=== PATIENT | male | born 1950 | race Caucasian/White ===

== ENCOUNTER 2023-05-03 15:50 | Emergency (ER) | payer MEDICARE, SELFPAY ==
[2023-05-03] VITALS (45 sets, daily range): BP systolic 140–187; BP diastolic 76–105; PULSE 66–92; RESP 14–28; TEMP 36.4; O2SAT 94–99; BMI 21.5
--- NOTE | 2023-05-03 16:29 | ED_ITS ---
HPI - Extremity Injury (Lower) General Chief Complaint: Extremity Injury, Lower Stated Complaint: Numbness Left Leg Time Seen by Provider: 05/03/23 16:09 Source: patient Mode of arrival: Wheelchair Limitations: no limitations History of Present Illness HPI Narrative: The patient have history of hypertension hyperlipidemia and stent placement in his carotid according to the, history he provided, the patient with his bicycle outside for 2 miles after which he went home with no problem when he got home he did ascend the stairs after which he started having swelling and also then felt his left leg is full and gave up on him, he had then has been complaining of left leg pain mostly at the proximal leg going down his distal. And he feels his left leg heavy The patient also had a incontinence of stool that happened upon arrival and that was an abnormal thing to happen to him He denies any abdominal pain any nausea or vomiting any fall or trauma he also denies any symptoms prior to this incident or any symptoms similar to this incident Related Data Home Medications Medication Instructions Recorded Confirmed amlodipine 2.5 mg tablet 2.5 mg PO DAILY 05/03/23 05/03/23 lisinopril 20 2 tab PO DAILY 05/03/23 05/03/23 mg-hydrochlorothiazide 12.5 mg tablet rosuvastatin 40 mg tablet 40 mg PO DAILY 05/03/23 05/03/23 Allergies Allergy/AdvReac Type Severity Reaction Status Date / Time No Known Drug Allergies Allergy Verified 05/03/23 16:09 Review of Systems ROS Status of ROS 10 or more systems reviewed and unremark able except as noted in history and below [facility] Social History Smoking status: Heavy tobacco smoker Exam Narrative Exam Narrative: Nurses notes and vital signs reviewed and patient is not hypoxic. General: Well-appearing and in no apparent distress. Skin: Warm, dry, no pallor noted. No rash. Head: Normocephalic, atraumatic. Neck: Supple, non-tender. Eye: Pupils are equal, round and EOMI. No scleral icterus. Ears, Nose, Mouth, and Throat: TM are clear, no nasal mucosal hypertrophy. Oral mucosa is moist, no posterior oropharynx erythema, uvula is mid-line Cardiovascular: Regular Rate and Rhythm without murmur, gallop or rub. Respiratory: No accessory muscle use or respiratory distress. Lungs are clear to auscultation, no wheezing, rales or rhonchi Chest Wall: no tenderness Back: No midline thoracic or lumbar vertebral tenderness. No CVA tenderness Musculoskeletal: It was obvious that the patient left foot is pale and cold compared to the right foot it was also noted that the patient have dopplerable dorsalis pedis on the right side but on the left side he had no pulse I also was not able to obtain an ultrasound pulsation of the femoral and the left side as it can be visualized but it not pulsating and there was a weak pulsation on the right side GI: Abdomen is soft, non-distended. Normal bowel sounds. No masses appreciated. No tenderness to palpation. No rebound, guarding, or rigidity noted. Neurological: A&O x4. No cranial nerve dysfunction observed. No truncal ataxia. Moves all extremities. Sensation intact. Psychiatric: Cooperative and interactive. Normal mood and affect. Constitutional Vital Signs, click to edit/add: Last Vital Signs Temp 97.5 F L 05/03/23 16:04 Pulse 92 H 05/03/23 16:04 Resp 20 05/03/23 16:04 BP 146/105 H 05/03/23 16:04 Pulse Ox 99 05/03/23 16:04 O2 Del Method Room Air 05/03/23 16:04 Course Vital Signs Vital signs: Vital Signs Temperature 97.5 F L 05/03/23 16:04 Pulse Rate 92 H 05/03/23 16:04 Respiratory Rate 20 05/03/23 16:04 Blood Pressure 146/105 H 05/03/23 16:04 Pulse Oximetry 99 05/03/23 16:04 Oxygen Delivery Method Room Air 05/03/23 16:04 Temperature 97.5 F L 05/03/23 16:04 Pulse Rate 92 H 05/03/23 16:04 Respiratory Rate 20 05/03/23 16:04 Blood Pressure 146/105 H 05/03/23 16:04 Pulse Oximetry 99 05/03/23 16:04 Oxygen Delivery Method Room Air 05/03/23 16:04 MDM - Extremity Injury (Lower) MDM Narrative Medical decision making narrative: The patient EKG upon presentation showing sinus rhythm with a heart rate of 75 It was concerning the fact that the patient left leg is pale with no pulse can be detected or deplorable The patient also the femoral with ultrasound use with not able to detect any pulsation in the femoral although I can obviously see it pulsating on the right side although weak The patient have a incontinence of stool that was well formed stool which is a new incident Right now the patient CBC shows leukocytosis lactic acid is elevated around 4 which ischemic incident is suspected pt was started on heparin with obvious decreased blood supply to the left leg No weakness detected but the patient still feeling his left heavy which is mostly secondary to his acute ischemic changes started on low dose heparin awaiting cta result The patient care transferred to Dr Salas Discharge Plan Discharge Patient Disposition: Still a Patient
--- NOTE | 2023-05-03 16:30 | ECG_ITS ---
[facility] Test Date: 2023-05-03 Pat Name: EDMUNDO WALKER Department: Room: - Gender: Male Clinical Data Programmer: : [id number] Requested By: [id number] Order Number: [id number] Reading MD: ANDRIA WATERMAN Measurements Intervals [place] Rate: 75 P: 68 WA: 212 QRS: -3 QRSD: 82 T: 64 QT: 394 QTc: 422 Interpretive Statements 1100 Sinus rhythm 2231 First degree AV block 9150 abnormal ECG No previous ECG available for comparison Electronically Signed On 05-04-2023 7:16:07 EST by ANDRIA WATERMAN
[2023-05-03 16:49] LABS: Basophils Percent Auto 0.2 % (0.2-2.0); Eosinophils Absolute Auto 0.3 10^3/uL (0.0-0.7); Eosinophils Percent Auto 1.5 % (0.9-7.0); Hematocrit 40.9 % (42.0-54.0); Hemoglobin 13.4 g/dL (14.0-18.0); Immature Granulocytes Abs Auto 0.15 10^3/uL (0.00-0.03); Immature Granulocytes Pct Auto 0.9 % (0.0-0.5); Lymphocytes Absolute Auto 1.4 10^3/uL (1.2-3.8); Lymphocytes Percent Auto 8.3 % (20.5-60.0); Mean Corpuscular HGB Conc 32.8 g/dL (29.9-35.2); Mean Corpuscular Hemoglobin 28.9 pg (25.9-34.0); Mean Corpuscular Volume 88.1 fL (80.0-94.0); Mean Platelet Volume 9.7 fL (9.5-13.5); Monocytes Absolute Auto 0.5 10^3/uL (0.3-0.8); Neutrophils Absolute Auto 14.4 10^3/uL (1.4-6.5); Neutrophils Percent Auto 86.1 % (43.0-75.0); Platelet Count 179 10^3/uL (150-450); Red Blood Count 4.64 10^6/uL (4.70-6.10); Red Cell Distribution Width 12.7 % (11.0-15.0); White Blood Count 16.7 10^3/uL (4.0-11.0)
[2023-05-03 17:06] LABS: Alanine Aminotransferase 28 U/L (16-63); Albumin Globulin Ratio 0.9; Albumin Level 3.8 g/dL (3.4-5.0); Alkaline Phosphatase 97 U/L (46-116); Anion Gap 13.9; Aspartate Amino Transferase 20 U/L (15-37); BUN Creatinine Ratio 8.2; Bilirubin Total 0.7 mg/dL (0.2-1.0); Calcium 9.3 mg/dL (8.5-10.1); Carbon Dioxide 28.2 mmol/L (21.0-32.0); Chloride 97 mmol/L (98-107); Estimated GFR (African America 48 (>=60); Estimated GFR (Non-African Ame 40 (>=60); Glucose 132 mg/dL (74-106); Potassium 4.1 mmol/L (3.5-5.1); Sodium 135 mmol/L (136-145); Total Protein 7.8 g/dL (6.4-8.2)
[2023-05-03 17:08] LABS: Troponin I High Sensitivity 11.9 pg/mL (4.0-76.1)
[2023-05-03 17:12] LABS: Lactate/Lactic Acid 4.2 mmol/L (0.4-2.0)
[2023-05-03 17:13] LABS: INR 0.96; Partial Thromboplastin Time 25.5 sec (22.3-36.2); Prothrombin Time 10.2 sec (9.0-11.6)
--- NOTE | 2023-05-03 17:35 | CT_ITS ---
[address] [address] Patient Name: EDMUNDO WALKER MRN: [id number] date: 1950 Sex: M Assigned Patient Location: ER Current Patient Location: Accession/Order Number: [id number] Exam Date: 05/03/2023 17:22 Report Date: 05/03/2023 20:11 At the request of: MATTHEW MENDOZA Procedure: CT angio abd aorta runoff EXAMINATION: CT angio abd aorta runoff HISTORY: iliac occlusion ? COMPARISON: No relevant comparison available. TECHNIQUE: CT angiographic images of the abdomen, pelvis, and lower extremities were obtained after the administration of intravenous contrast material. Multi-planar reformatted images and maximum intensity projections were obtained. Dose reduction techniques were achieved by using automated exposure control and/or adjustment of mA and/or kV according to patient size and/or use of iterative reconstruction technique. FINDINGS: AORTA: Diffuse atherosclerotic calcification of the abdominal aorta with no significant stenosis or occlusion. Mild stenosis of the origin of the celiac artery. The superior mesenteric and inferior mesenteric arteries are patent. There is prominent calcification of the origin of the right renal artery with probable mild stenosis. There is a left renal artery stent which appears occluded. ILIAC: There is an occluded left common iliac artery stent in the common iliac artery. There is a stent in the left external iliac artery which appears patent with reconstitution from collateral flow likely via the internal iliac artery. There is diffuse calcification in the iliac arteries. There is mild stenosis in the bilateral internal iliac arteries. There is a left internal iliac aneurysm on image 99 series 4 measuring 10 mm. There is a patent stent within the right external iliac artery. RIGHT LEG: There is diffuse calcification in the right common femoral artery with mild stenosis. There is severe stenosis of the proximal right superficial femoral artery with occlusion proximally. There is distal reconstitution. The profunda femoral artery is patent. The right popliteal artery is patent with mild stenosis. The tibioperoneal trunk appears patent. There appears to be single vessel runoff via the peroneal artery with occlusion of the anterior tibial and posterior tibial arteries. 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 There is moderate, approximately 60% stenosis of left common femoral artery distal to the stent and proximal to this aneurysm. There is occlusion of the left superficial femoral artery and popliteal artery with partial reconstitution of the distal popliteal artery from collateral flow. The popliteal artery is small in caliber. There is single vessel runoff via the peroneal artery with occlusion of the anterior tibial and posterior tibial arteries. LUNG BASES: No visible pulmonary or pleural disease. LIVER: Normal. GALLBLADDER/BILIARY SYSTEM: Normal. SPLEEN: Normal. PANCREAS: Moderate fatty replacement. ADRENALS: Normal. KIDNEYS: Normal right kidney. Severe atrophy of the left kidney with decreased enhancement consistent with the above-mentioned occluded stent in the left renal artery. RETROPERITONEUM: Normal with no adenopathy. BOWEL/MESENTERY: Unremarkable. URINARY BLADDER: No visible focal wall thickening, lesion, or calculus. REPRODUCTIVE SYSTEM: Borderline enlarged prostate gland measuring 4.8 x 3.3 cm. ABDOMINAL WALL: Moderate fat-containing supraumbilical ventral hernia. BONES: There are mild to moderate multilevel degenerative changes of the spine. There is a mild compression fracture at L1 which is age indeterminate but favored to be subacute to chronic in nature. Of note, there is transitional anatomy at the lumbosacral junction and the last well-formed disc space is considered to be L5-S1 for the purposes of this report with a hypoplastic disc space at S1-S2. CT/CT angio abd aorta runoff IMPRESSION: 1. Occluded stent in left common iliac artery with reconstitution of the left external iliac artery from collateral blood flow. 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 There is single vessel runoff to the left calf with a patent peroneal artery but occlusion of the anterior and posterior tibial arteries. 2. Occlusion of the right superficial femoral artery with distal reconstitution of the right superficial femoral and popliteal arteries. There is single vessel runoff to the right leg via the peroneal artery with occlusion of the anterior tibial and posterior tibial arteries. 3. 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 4. Occluded left renal artery stent with associated severe left renal atrophy and decreased enhancement from chronic ischemia. 5. Age-indeterminate but likely subacute to chronic compression fracture at L1. 6. Fat-containing ventral hernia, fatty replacement of the pancreas, and borderline enlarged prostate gland. Electronically authenticated by: VIRIDIANA ROTH Date: 05/03/2023 20:11
[2023-05-03] MEDS: 0.9 % SODIUM CHLORIDE 1,000 ML 1000 ML IV (17:43)
--- NOTE | 2023-05-03 18:26 | PC.NURSE ---
Pt arrives with complaints that his left leg felt like it had swelled up and decreased sensation/ strength. Pts left foot is pale and cool. Myselfand Dr Steiner unable to locate a pedal pulse with the doppler . Dr Steiner also used the ultrasound but was not able to see blood flow in artery.
[2023-05-03] MEDS: HEPARIN SODIUM (PORCINE) 5,000 UNIT/ML VIAL 2700 UNIT IV (19:16)
[2023-05-03] MEDS: HEPARIN SODIUM,PORCINE/D5W 25,000 UNIT/500 ML IV.SOLN 16.765 UNIT IV (19:17)
[2023-05-03 20:10] LABS: Lactate/Lactic Acid 1.5 mmol/L (0.4-2.0)
== END 2023-05-03 22:35 | disposition short-term general hospital (02) ==
PROVIDERS: Emergency Medicine; Emergency Provider Emergency Medicine; PCP Internal Medicine
DX: I77.1 Stricture of artery (principal); I73.9 Peripheral vascular disease, unspecified; R15.9 Full incontinence of feces; M79.89 Other specified soft tissue disorders; I10 Essential (primary) hypertension; F17.210 Nicotine dependence, cigarettes, uncomplicated; Z79.899 Other long term (current) drug therapy
CPT/HCPCS: 36415; 75635; 80053; 83605; 84484; 85025; 85610; 85730; 93005; 96374; 99285; Q9966

== ENCOUNTER 2024-09-05 18:51 | Emergency (ER) | payer MEDICARE, SELFPAY ==
[2024-09-05 19:05] VITALS: BP 171/87; PULSE 83; TEMP 36.6; O2SAT 99; BMI 24.4
--- NOTE | 2024-09-05 19:16 | ED.EXTPRO1 ---
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 He states he fell yesterday in his home, he denies head injury or loss of consciousness. He has pain to the femur and knee, no medications taken prior to arrival. He is on aspirin and Plavix. He is due to follow-up with vascular surgery at [facility] in the next several weeks to have his carotid arteries evaluated for possible stenting. He has noted on arrival for the bilateral lower extremities to be cool to the touch and pale. Related Data Home Medications ?Medication ?Instructions ?Recorded ?Confirmed aspirin 81 mg capsule 81 mg PO DAILY 05/03/23 09/05/24 lisinopril 20 2 tab PO DAILY 05/03/23 09/05/24 mg-hydrochlorothiazide 12.5 mg tablet mecobalamin (vitamin B12) 500 mcg 500 mcg PO QDAY 05/03/23 09/05/24 chewable tablet rosuvastatin 40 mg tablet 40 mg PO DAILY 05/03/23 09/05/24 clopidogrel 75 mg tablet mg 09/05/24 ergocalciferol (vitamin D2) 1,250 09/05/24 mcg (50,000 unit) capsule metoprolol succinate 25 mg mg PO 09/05/24 tablet,extended release 24 hr Allergies Allergy/AdvReac Type Severity Reaction Status Date / Time No Known Drug Allergies Allergy Verified 09/05/24 19:05 Review of Systems ROS Constitutional Denies: fever or chills Ears, nose, mouth, and throat Denies: throat pain or nasal congestion Cardiovascular Denies: chest pain Respiratory Denies: shortness of breath or cough Gastrointestinal Denies: nausea or vomiting Musculoskeletal Reports: extremity pain; Denies: back pain, neck pain or extremity swelling Integumentary/Breast Denies: rash Neurological Denies: numbness in extremities or weakness in extremities Hematologic/Lymphatic Reports: easy bruising and easy bleeding PFSH PFSH Social History Smoking status: Heavy tobacco smoker Little interest or pleasure in doing things: not at all Feeling down, depressed, or hopeless: not at all Exam Narrative Exam Narrative: Gen.: Awake, alert, in no distress Head: Normocephalic, atraumatic ENT: Moist mucous membranes Respiratory: No respiratory distress, lungs clear bilaterally Cardio: Regular rate and rhythm Gastrointestinal: Abdomen is soft, nondistended and nontender to palpation Extremities: No bony tenderness of the pelvis, right hip or right femur. Patient is able to flex and extend at the right knee. Capillary refill >3 seconds in all toes of the feet, sensation to the toes intact. Unable to palpate DP pulses bilaterally. Psych: Normal mood and affect Neuro: No focal neuro deficit Skin: Warm, dry, intact Constitutional Vital Signs, click to edit/add: Last Vital Signs Temp 97.9 F 09/05/24 19:05 Pulse 71 09/05/24 21:54 Resp 18 09/05/24 21:54 BP 119/63 09/05/24 21:54 Pulse Ox 98 09/05/24 21:54 O2 Del Method Room Air 09/05/24 21:54 Course Vital Signs Vital signs: Vital Signs Temperature 97.9 F 09/05/24 19:05 Pulse Rate 83 09/05/24 19:05 Respiratory Rate 18 09/05/24 19:05 Blood Pressure 171/87 H 09/05/24 19:05 Pulse Oximetry 99 09/05/24 19:05 Oxygen Delivery Method Room Air 09/05/24 19:05 Temperature 97.9 F 09/05/24 19:05 Pulse Rate 71 09/05/24 21:54 Respiratory Rate 18 09/05/24 21:54 Blood Pressure 119/63 09/05/24 21:54 Pulse Oximetry 98 09/05/24 21:54 Oxygen Delivery Method Room Air 09/05/24 21:54 MDM - Extremity (Nontraumatic) MDM Narrative Medical decision making narrative: X-rays obtained of the right femur and pelvis. Patient medicated for pain in the ER. He was able to transfer from the wheelchair to the bed without difficulty and is able to move his right lower extremity without issue. We were unable to Doppler pulses in his feet and ultrasounds of the bilateral lower extremities show occlusion of the superficial femoral arteries bilaterally. This was discussed with the radiologist. I did contact Dr. Ruiz ([id number]) for vascular surgery at [facility] who is the patient's vascular surgeon. We reviewed the patient's clinical presentation and ultrasound that he will see the patient tomorrow at 9 AM. Patient and family are comfortable with treatment plan. Return to the emergency department if symptoms change or worsen. Patient was reevaluated by attending physician prior to discharge. He is hemodynamically stable at discharge. SHARED APC VISIT, PHYSICIAN ATTESTATION: [id number] I performed a substantive part of the MDM during the patient?s E/M visit. I personally evaluated and examined the patient. I personally made or approved the documented management plan and acknowledge its risk of complications. Medical Records Attestation: I reviewed the patient's medical records. Lab Data Attestation: I reviewed the patient's lab results. Labs: Lab Results 09/05/24 Range/Units 19:15 WBC 13.4 H (4.0-11.0) 10^3/uL RBC 4.79 (4.70-6.10) 10^6/uL Hgb 13.7 L (14.0-18.0) g/dL Hct 40.6 L (42.0-54.0) % MCV 84.8 (80.0-94.0) fL MCH 28.6 (25.9-34.0) pg MCHC 33.7 (29.9-35.2) g/dL RDW 13.1 (11.0-15.0) % Plt Count 208 (150-450) 10^3/uL MPV 9.3 L (9.5-13.5) fL Neut % (Auto) 84.4 H (43.0-75.0) % Lymph % (Auto) 10.5 L (20.5-60.0) % Eddy % (Auto) 4.3 (1.7-12.0) % Eos % (Auto) 0.2 L (0.9-7.0) % Baso % (Auto) 0.2 (0.2-2.0) % Neut # (Auto) 11.3 H (1.4-6.5) 10^3/uL Lymph # (Auto) 1.4 (1.2-3.8) 10^3/uL Eddy # (Auto) 0.6 (0.3-0.8) 10^3/uL Eos # (Auto) 0.0 (0.0-0.7) 10^3/uL Baso # (Auto) 0.0 (0.0-0.1) 10^3/uL Abs Immat Gran (auto) 0.05 H (0.00-0.03) 10^3/uL Imm/Tot Granulo (auto) 0.4 (0.0-0.5) % PT 10.6 (9.0-11.6) sec INR 1.00 Sodium 132 L (136-145) mmol/L Potassium 3.3 L (3.5-5.1) mmol/L Chloride 94 L (98-107) mmol/L Carbon Dioxide 32.1 H (21.0-32.0) mmol/L Anion Gap 9.2 BUN 12.0 (7.0-18.0) mg/dL Creatinine 1.74 H (0.70-1.30) mg/dL Est GFR ( Amer) 47 L (>=60 mL/min/1.73m^2) Est GFR (Non-Af Amer) 39 L (>=60 mL/min/1.73m^2) BUN/Creatinine Ratio 6.9 Glucose 104 (74-106) mg/dL Calcium 9.7 (8.5-10.1) mg/dL Total Bilirubin 1.1 H (0.2-1.0) mg/dL AST 14 L (15-37) U/L ALT 24 (16-63) U/L Alkaline Phosphatase 92 (46-116) U/L Total Protein 8.1 (6.4-8.2) g/dL Albumin 3.5 (3.4-5.0) g/dL Globulin 4.6 g/dL Albumin/Globulin Ratio 0.8 Imaging Data xr femur/pelvis: Attestation: I have reviewed the pertinent imaging results. Discharge Plan Discharge Chief Complaint: Extremity Problem, Nontraumatic Clinical Impression: Pain in right leg, Fall, Limb ischemia Patient Disposition: Home, Self-Care Time of Disposition Decision: 22:21 Condition: Good Mode of Transportation: Private Vehicle Prescriptions / Home Meds: No Action lisinopril-hydrochlorothiazide 20-12.5 mg tablet 2 tab PO DAILY rosuvastatin 40 mg tablet 40 mg PO DAILY aspirin 81 mg capsule 81 mg PO DAILY mecobalamin (vitamin B12) 500 mcg tablet,chewable 500 mcg PO QDAY clopidogrel 75 mg tablet metoprolol succinate 25 mg tablet extended release 24 hr PO ergocalciferol (vitamin D2) 1,250 mcg (50,000 unit) capsule Print Language: Kinyarwanda Instructions: Leg Pain (ED) Additional Instructions: Please follow up with Dr. Ruiz tomorrow in his office at 9am, he will see you to reevaluate your legs Referrals: SALLY ELAINE [Primary Care Provider] - 1 week Discharge Date/Time: 09/05/24 22:44 Documented by User: Eugene Garcia MD 09/05/24 23:28 HPI - Extremity Problem General Chief complaint: Extremity Problem, Nontraumatic Stated complaint: Extremity Injury, Lower Time Seen by Provider: 09/05/24 19:05 Related Data Home Medications ?Medication ?Instructions ?Recorded ?Confirmed aspirin 81 mg capsule 81 mg PO DAILY 05/03/23 09/05/24 lisinopril 20 2 tab PO DAILY 05/03/23 09/05/24 mg-hydrochlorothiazide 12.5 mg tablet mecobalamin (vitamin B12) 500 mcg 500 mcg PO QDAY 05/03/23 09/05/24 chewable tablet rosuvastatin 40 mg tablet 40 mg PO DAILY 05/03/23 09/05/24 clopidogrel 75 mg tablet mg 09/05/24 ergocalciferol (vitamin D2) 1,250 09/05/24 mcg (50,000 unit) capsule metoprolol succinate 25 mg mg PO 09/05/24 tablet,extended release 24 hr Allergies Allergy/AdvReac Type Severity Reaction Status Date / Time No Known Drug Allergies Allergy Verified 09/05/24 19:05 PFSH PFSH Social History (Reviewed 09/05/24 @ 19:18 by TATY Whitman Smoking status: Heavy tobacco smoker Little interest or pleasure in doing things: not at all Feeling down, depressed, or hopeless: not at all Exam Constitutional Vital Signs, click to edit/add: Last Vital Signs Temp 97.9 F 09/05/24 19:05 Pulse 71 09/05/24 21:54 Resp 18 09/05/24 21:54 BP 119/63 09/05/24 21:54 Pulse Ox 98 09/05/24 21:54 O2 Del Method Room Air 09/05/24 21:54 Course Vital Signs Vital signs: Vital Signs Temperature 97.9 F 09/05/24 19:05 Pulse Rate 83 09/05/24 19:05 Respiratory Rate 18 09/05/24 19:05 Blood Pressure 171/87 H 09/05/24 19:05 Pulse Oximetry 99 09/05/24 19:05 Oxygen Delivery Method Room Air 09/05/24 19:05 Temperature 97.9 F 09/05/24 19:05 Pulse Rate 71 09/05/24 21:54 Respiratory Rate 18 09/05/24 21:54 Blood Pressure 119/63 09/05/24 21:54 Pulse Oximetry 98 09/05/24 21:54 Oxygen Delivery Method Room Air 09/05/24 21:54 MDM - Extremity (Nontraumatic) MDM Narrative Medical decision making narrative: X-rays obtained of the right femur and pelvis. Patient medicated for pain in the ER. He was able to transfer from the wheelchair to the bed without difficulty and is able to move his right lower extremity without issue. We were unable to Doppler pulses in his feet and ultrasounds of the bilateral lower extremities show occlusion of the superficial femoral arteries bilaterally. This was discussed with the radiologist. I did contact Dr. Ruiz ([id number]) for vascular surgery at [facility] who is the patient's vascular surgeon. We reviewed the patient's clinical presentation and ultrasound that he will see the patient tomorrow at 9 AM. Patient and family are comfortable with treatment plan. Return to the emergency department if symptoms change or worsen. Patient was reevaluated by attending physician prior to discharge. He is hemodynamically stable at discharge. SHARED APC VISIT, PHYSICIAN ATTESTATION: [id number] I performed a substantive part of the MDM during the patient?s E/M visit. I personally evaluated and examined the patient. I personally made or approved the documented management plan and acknowledge its risk of complications. I, Dr Garcia, have reviewed the above progress note and course of action in the ER; agree with the above. I have personally seen and evaluated this patient, gone over history and physical, and discussed disposition and treatment plan with the patient. Patient 2 sons at bedside are aware of ultrasound findings and to see the vascular surgeon tomorrow at 9 AM. Patient's son states that he will be taking the patient to the office at 9 AM. Patient cap refill is approximately 3-4+ to all toes of the right foot. Patient has sensation to the right foot, no signs of acute ischemia. No signs of compartment syndrome. Strict return precautions were discussed at bedside and on discharge paperwork and patient agrees to go to the vascular surgeon and patient son will take him Lab Data Labs: Lab Results 09/05/24 Range/Units 19:15 WBC 13.4 H (4.0-11.0) 10^3/uL RBC 4.79 (4.70-6.10) 10^6/uL Hgb 13.7 L (14.0-18.0) g/dL Hct 40.6 L (42.0-54.0) % MCV 84.8 (80.0-94.0) fL MCH 28.6 (25.9-34.0) pg MCHC 33.7 (29.9-35.2) g/dL RDW 13.1 (11.0-15.0) % Plt Count 208 (150-450) 10^3/uL MPV 9.3 L (9.5-13.5) fL Neut % (Auto) 84.4 H (43.0-75.0) % Lymph % (Auto) 10.5 L (20.5-60.0) % Eddy % (Auto) 4.3 (1.7-12.0) % Eos % (Auto) 0.2 L (0.9-7.0) % Baso % (Auto) 0.2 (0.2-2.0) % Neut # (Auto) 11.3 H (1.4-6.5) 10^3/uL Lymph # (Auto) 1.4 (1.2-3.8) 10^3/uL Eddy # (Auto) 0.6 (0.3-0.8) 10^3/uL Eos # (Auto) 0.0 (0.0-0.7) 10^3/uL Baso # (Auto) 0.0 (0.0-0.1) 10^3/uL Abs Immat Gran (auto) 0.05 H (0.00-0.03) 10^3/uL Imm/Tot Granulo (auto) 0.4 (0.0-0.5) % PT 10.6 (9.0-11.6) sec INR 1.00 Sodium 132 L (136-145) mmol/L Potassium 3.3 L (3.5-5.1) mmol/L Chloride 94 L (98-107) mmol/L Carbon Dioxide 32.1 H (21.0-32.0) mmol/L Anion Gap 9.2 BUN 12.0 (7.0-18.0) mg/dL Creatinine 1.74 H (0.70-1.30) mg/dL Est GFR ( Amer) 47 L (>=60 mL/min/1.73m^2) Est GFR (Non-Af Amer) 39 L (>=60 mL/min/1.73m^2) BUN/Creatinine Ratio 6.9 Glucose 104 (74-106) mg/dL Calcium 9.7 (8.5-10.1) mg/dL Total Bilirubin 1.1 H (0.2-1.0) mg/dL AST 14 L (15-37) U/L ALT 24 (16-63) U/L Alkaline Phosphatase 92 (46-116) U/L Total Protein 8.1 (6.4-8.2) g/dL Albumin 3.5 (3.4-5.0) g/dL Globulin 4.6 g/dL Albumin/Globulin Ratio 0.8 Discharge Plan Discharge Chief Complaint: Extremity Problem, Nontraumatic Clinical Impression: Pain in right leg, Fall, Limb ischemia Patient Disposition: Home, Self-Care Time of Disposition Decision: 22:21 Condition: Good Mode of Transportation: Private Vehicle Prescriptions / Home Meds: No Action lisinopril-hydrochlorothiazide 20-12.5 mg tablet 2 tab PO DAILY rosuvastatin 40 mg tablet 40 mg PO DAILY aspirin 81 mg capsule 81 mg PO DAILY mecobalamin (vitamin B12) 500 mcg tablet,chewable 500 mcg PO QDAY clopidogrel 75 mg tablet metoprolol succinate 25 mg tablet extended release 24 hr PO ergocalciferol (vitamin D2) 1,250 mcg (50,000 unit) capsule Print Language: Kinyarwanda Instructions: Leg Pain (ED) Additional Instructions: Please follow up with Dr. Ruiz tomorrow in his office at 9am, he will see you to reevaluate your legs Referrals: SALLY ELAINE [Primary Care Provider] - 1 week Discharge Date/Time: 09/05/24 22:44
[2024-09-05 19:37] LABS: Basophils Percent Auto 0.2 % (0.2-2.0); Eosinophils Percent Auto 0.2 % (0.9-7.0); Hematocrit 40.6 % (42.0-54.0); Hemoglobin 13.7 g/dL (14.0-18.0); Immature Granulocytes Abs Auto 0.05 10^3/uL (0.00-0.03); Immature Granulocytes Pct Auto 0.4 % (0.0-0.5); Lymphocytes Absolute Auto 1.4 10^3/uL (1.2-3.8); Lymphocytes Percent Auto 10.5 % (20.5-60.0); Mean Corpuscular HGB Conc 33.7 g/dL (29.9-35.2); Mean Corpuscular Hemoglobin 28.6 pg (25.9-34.0); Mean Corpuscular Volume 84.8 fL (80.0-94.0); Mean Platelet Volume 9.3 fL (9.5-13.5); Monocytes Absolute Auto 0.6 10^3/uL (0.3-0.8); Monocytes Percent Auto 4.3 % (1.7-12.0); Neutrophils Absolute Auto 11.3 10^3/uL (1.4-6.5); Neutrophils Percent Auto 84.4 % (43.0-75.0); Platelet Count 208 10^3/uL (150-450); Red Blood Count 4.79 10^6/uL (4.70-6.10); Red Cell Distribution Width 13.1 % (11.0-15.0); White Blood Count 13.4 10^3/uL (4.0-11.0)
[2024-09-05 19:39] LABS: Prothrombin Time 10.6 sec (9.0-11.6)
[2024-09-05 19:45] LABS: Alanine Aminotransferase 24 U/L (16-63); Albumin Globulin Ratio 0.8; Albumin Level 3.5 g/dL (3.4-5.0); Alkaline Phosphatase 92 U/L (46-116); Anion Gap 9.2; Aspartate Amino Transferase 14 U/L (15-37); BUN Creatinine Ratio 6.9; Bilirubin Total 1.1 mg/dL (0.2-1.0); Calcium 9.7 mg/dL (8.5-10.1); Carbon Dioxide 32.1 mmol/L (21.0-32.0); Chloride 94 mmol/L (98-107); Estimated GFR (African America 47 (>=60 mL/min/1.73m^2); Estimated GFR (Non-African Ame 39 (>=60 mL/min/1.73m^2); Globulin 4.6 g/dL; Glucose 104 mg/dL (74-106); Potassium 3.3 mmol/L (3.5-5.1); Sodium 132 mmol/L (136-145); Total Protein 8.1 g/dL (6.4-8.2)
[2024-09-05] MEDS: HYDROCODONE/ACET 5-325 MG TABLET 1 TAB PO (20:50)
[2024-09-05 20:54] VITALS: BP 155/78; PULSE 68; O2SAT 98
[2024-09-05 21:09] VITALS: BP 155/78; PULSE 70; O2SAT 98
[2024-09-05 21:54] VITALS: BP 119/63; PULSE 71; O2SAT 98
== END 2024-09-05 22:44 | disposition home or self-care (01) ==
PROVIDERS: Physician Assistant; Emergency Provider Emergency Medicine; PCP Internal Medicine
DX: I99.8 Other disorder of circulatory system (principal); M79.604 Pain in right leg; I73.9 Peripheral vascular disease, unspecified; Z79.82 Long term (current) use of aspirin; Z79.02 Long term (current) use of antithrombotics/antiplatelets; F17.200 Nicotine dependence, unspecified, uncomplicated; Z91.81 History of falling
CPT/HCPCS: 36415; 72170; 73552; 80053; 85025; 85610; 93925; 99285